=== PATIENT | female | born 1980 | race Caucasian/White ===

== ENCOUNTER 2017-07-11 04:57 | Emergency (ER) | payer OTHER, SELFPAY ==
[2017-07-11 04:59] VITALS: BP 125/86; PULSE 77; RESP 17; TEMP 36.9; O2SAT 97; BMI 30.2
--- NOTE | 2017-07-11 05:14 | EKG12_ITS ---
Test Reason : ABD PAIN Blood Pressure : / mmHG Vent. Rate : 071 BPM Atrial Rate : 071 BPM P-R Int : 122 ms QRS Dur : 094 ms QT Int : 412 ms P-R-T Axes : 043 040 037 degrees QTc Int : 447 ms Normal sinus rhythm Normal ECG Confirmed by CASIE DIAZ, DENZEL ([id number]), story editor MARTA FERRARA ([id number]) on 07/14/2017 3:20:01 PM Referred By: NED Confirmed By:DENZEL JASON MD
--- NOTE | 2017-07-11 05:16 | ED.VISSUMM ---
- ER Visit Summary Date of Service: 07/11/17 Chief Complaint: Abdominal pain History of Present Illness: The patient is a 37 F who woke from sleep around 1 or 130 this morning with pain high in the epigastric area/lower chest. She describes a pressure and fullness sensation. It did radiate to her back. She had nausea but no vomiting. Patient states she did feel short of breath. She is reportedly rolling around on the floor moaning. Pain is now improving. She ate chicken and dressing last evening for dinner. No known history of gallbladder problems, but mother did have her gallbladder removed. Physical Examination: Vital signs are unremarkable. Patient is sitting upright in bed no acute distress. Head and neck examination is normal. Heart is regular rate and rhythm. Lung sounds are clear. Abdomen is soft with tenderness in the epigastric region. There is no guarding or rebound. She has active bowel sounds throughout. Extremity examination reveals no calf tenderness or edema. She has strong distal pulses. Test Results: CBC reveals normal white count with a slight left shift at 84% neutrophils. Chemistry studies are normal. LFTs and lipase are significant for an ALT of 137 and AST of 160. Troponin is less than 0.02. test is negative. EKG is sinus at 71 with no sign of acute ischemia. Emergency Department Course and Treatment: Patient declined anything for pain or nausea while here. On repeat evaluation pain is completely subsided at this time. Due to her symptoms and elevation in her LFTs, right upper quadrant ultrasound will be obtained. This will be signed out to be checked by the oncoming physician. This is been discussed with patient and family at bedside. Treatment Plan: [] Disposition: Pending ultrasound Impression: Epigastric pain, improved This note was generated with Zost[employer] dictation software. It may contain incorrect words, spelling, and punctuation that were not noted in review of the chart prior to signing ED Disposition - Plan for ED Patient: Chief Complaint: Abd Pain Referrals: NOT,DEFINED [NON-STAFF] -
[2017-07-11] MEDS: 0.9% Normal Saline 1,000 ML 150 ML IV (05:30)
[2017-07-11 05:46] LABS: Absolute Neutrophil Count 8.8 X10^3/uL (2.0-7.7); Basophil# 0.02 X10^3/uL; Basophil% 0.2 % (0-1); Eosinophil# 0.09 X10^3/uL; Eosinophils% 0.9 % (0-5); Hematocrit 39.2 % (37-47); Hemoglobin 13.1 g/dl (12.0-15.0); Lymphocyte % 7.6 % (19-41); Mean Corp Hgb Conc 33.4 g/gl (32-36); Mean Corpuscular Hgb 29.3 pg (27.0-32.0); Mean Corpuscular Volume 87.7 fL (81-99); Mean Platelet Vol. 10.6 fl (6.2-12.0); Monocyte# 0.75 X10^3/uL; Monocyte% 7.2 % (0-10); Platelet Count 228 K/mm3 (150-450); RBC Distribution Width CV 12.4 % (11.6-14.6); RBC Distribution Width SD 39.4 fl (35.1-43.9); Red Blood Count 4.47 M/mm3 (4.2-5.4); White Blood Count 10.5 K/mm3 (4.4-11.0)
[2017-07-11 05:52] LABS: POSITIVE COUNT NO; POSITIVE DIFFERENTIAL NO; POSITIVE MORPHOLOGY NO
[2017-07-11 06:07] LABS: AST(SGOT) 160 U/L (15-37); Alanine Aminotransfer ALT/SGPT 137 U/L (13-56); Albumin, Serum 3.8 g/dL (3.2-5.0); Alkaline Phosphatase 67 U/L (45-117); Anion Gap 7 (5-15); BUN 14 mg/dL (7-18); BUN/Creat Ratio 18.1 RATIO (10-20); Bilirubin, Direct 0.27 mg/dL (0.00-0.30); Calcium,Total 8.4 mg/dL (8.5-10.1); Chloride 108 mmol/L (98-107); Creatinine, Serum 0.78 mg/dL (0.55-1.02); EST Glomerular Filtration Rate 88 mL/min (>60); Est Glom Filt Rate - Afr Amer 107 mL/min (>60); Estimated Creatinine Clearance 97.68 ml/min; Globulin 3.5 g/dL (2.2-4.2); Glucose 100 mg/dL (74-106); Lipase 124 U/L (73-393); Potassium 4.1 mmol/L (3.5-5.1); Protein, Total 7.3 g/dL (6.4-8.2); Sodium Level 140 mmol/L (136-145)
[2017-07-11 06:08] LABS: Pregnancy, Serum, hCG Quali. NEGATIVE Negative (0-9 Nonpreg)
--- NOTE | 2017-07-11 06:14 | US_ITS ---
STUDY: ABDOMINAL ULTRASOUND - RIGHT UPPER QUADRANT REASON FOR VISIT: Female, 37 years old. Right upper quadrant pain. Elevated LFTs TECHNIQUE: Ultrasound evaluation of the right upper quadrant was performed with real-time and static altamirano-scale imaging. TECHNICAL QUALITY: Adequate. COMPARISON: None. FINDINGS: Liver: The liver measures 13.6 cm. There is normal echogenicity of the liver. The bile ducts are within normal limits. There is hepatic color flow. The direction of portal flow is hepatopetal. There is no demonstrated mass lesion. Gallbladder: Normal distended gallbladder. The gallbladder wall measures 0.9 mm. There is a negative sonographic Almanza's sign. There is no pericholecystic fluid. There are no gallstones. Common Bile Duct (C.B.D.): The common bile duct measures 3.4 mm. Pancreas: Normal size of the head, body and tail of the pancreas. There is normal echogenicity of the pancreas. There is no demonstrated pancreatic mass or cyst. Right Kidney: Normal size of the right kidney. The right kidney measures 11.9 cm. Normal renal cortex. The right cortex measures 1.1 cm. There is no demonstrated renal mass or cyst. There is no right hydronephrosis. US/Gallbladder IMPRESSION: Normal right upper quadrant ultrasound examination. Electronically Signed: Navjot Santos DO at 8:41 EDT Tel , Service support ,
[2017-07-11 06:32] VITALS: BP 117/78; PULSE 65; RESP 15; O2SAT 98
--- NOTE | 2017-07-11 07:34 | ED.DEP ---
ED Disposition - Plan for ED Patient: Disposition: Home or Assisted Living Chief Complaint: Abd Pain Instructions: ED Epigastric Pain UKO, ED Gallbladder Infec Poss Referrals: Verónica Davis MD [STAFF PHYSICIAN] - As Needed
[2017-07-11 09:46] VITALS: BP 104/67
== END 2017-07-11 10:02 | disposition home or self-care (01) ==
PROVIDERS: Emergency Provider Emergency Medicine
DX: R10.13 Epigastric pain (principal); Z87.891 Personal history of nicotine dependence; L70.9 Acne, unspecified; Z79.899 Other long term (current) drug therapy
CPT/HCPCS: 76705; 80048; 80076; 83690; 84484; 84703; 85025; 93005; 96360; 96361; 99285; J7030; A4216

== ENCOUNTER → 2018-04-15 09:43 | Outpatient (CLI) | payer OTHER, SELFPAY ==
[2018-04-15 12:19] LABS: Absolute Lymphocyte Count 1.86 X10^3/ul (0.83-4.51); Basophil# 0.03 X10^3/uL; Basophil% 0.4 % (0-1); Eosinophil# 0.11 X10^3/uL; Eosinophils% 1.4 % (0-5); Hematocrit 40.3 % (37-47); Hemoglobin 13.3 g/dl (12.0-15.0); Lymphocyte # 1.86 X10^3/ul (4.0); Lymphocyte % 24.4 % (19-41); Mean Corpuscular Hgb 29.1 pg (27.0-32.0); Mean Corpuscular Volume 88.2 fL (81-99); Mean Platelet Vol. 11.7 fl (6.2-12.0); Monocyte# 0.62 X10^3/uL; Monocyte% 8.1 % (0-10); Neutrophil # 4.99 X10^3/uL (2.7-7.7); Neutrophil % 65.6 % (47-70); Platelet Count 244 K/mm3 (150-450); RBC Distribution Width CV 12.5 % (11.6-14.6); RBC Distribution Width SD 39.6 fl (35.1-43.9); Red Blood Count 4.57 M/mm3 (4.2-5.4); White Blood Count 7.6 K/mm3 (4.4-11.0)
[2018-04-15 12:24] LABS: POSITIVE COUNT NO; POSITIVE DIFFERENTIAL NO; POSITIVE MORPHOLOGY NO
[2018-04-15 12:58] LABS: ALB/GLOB Ratio 1.1 RATIO (0.9-2.4); AST(SGOT) 15 U/L (15-37); Alanine Aminotransfer ALT/SGPT 21 U/L (13-56); Alkaline Phosphatase 62 U/L (45-117); Anion Gap 7 (5-15); BUN 12 mg/dL (7-18); BUN/Creat Ratio 16.5 RATIO (10-20); Chloride 105 mmol/L (98-107); Creatinine, Serum 0.73 mg/dL (0.55-1.02); EST Glomerular Filtration Rate 94 mL/min (>60); Est Glom Filt Rate - Afr Amer 114 mL/min (>60); Globulin 3.5 g/dL (2.2-4.2); Glucose 80 mg/dL (74-106); Protein, Total 7.5 g/dL (6.4-8.2); Sodium Level 137 mmol/L (136-145); T4 Free Direct 1.04 ng/dL (0.76-1.46); Thyroid Stim Hormone (TSH) 2.61 uIU/mL (0.358-3.74)
--- OUTSIDE RECORDS SUMMARY | 2018-06-19 23:31 | XMS RPT_ITS ---
:1980 Author Organization [facility] Care Team Providers Name Role Phone Darwin Dodge Attending Unavailable Darwin Dodge Referring Unavailable Primay Care Physicia, No Primary Care Unavailable Bessie Avalos Attending Unavailable Primay Care Physicia, No Primary Care Unavailable PROBLEMS PROBLEMS DATE TYPE CONDITION / CODE ATTENDING STATUS SOURCE 04/15/2018 Unknown R53.83 - Other Darwin Dodge Active [facility] fatigue / Community R53.83(ICD-10) Hospital Repository PROCEDURES PROCEDURES No Procedure Records FoundRESULTS RESULTS CBC W/DIFF, AUTOMATED Collected: 04/15/2018 Status: F Source: [place] 10:03 AM [facility] [place] TYPE CODE TESTS RESULT OUT OF RANGE REFERENCE UNITS LAB L100.1000 4.4-11.0 K/mm3 Normal WBC 7.6 LAB L100.1200 4.2-5.4 M/mm3 Normal RBC 4.57 LAB L100.1300 12.0-15.0 g/dl Normal HGB 13.3 LAB L100.1400 37-47 % Normal HCT 40.3 LAB L100.1500 81-99 fL Normal MCV 88.2 LAB L100.1600 27.0-32.0 pg Normal MCH 29.1 LAB L100.1700 32-36 g/gl Normal MCHC 33.0 LAB L100.1810 11.6-14.6 % Normal RDW CV 12.5 LAB L100.1820 35.1-43.9 fl Normal RDW SD 39.6 LAB L100.1900 150-450 K/mm3 Normal PLT 244 LAB L100.2000 6.2-12.0 fl Normal MPV 11.7 LAB L100.2100 47-70 % Normal NEUT% 65.6 LAB L100.2200 19-41 % Normal LY% 24.4 LAB L100.2300 0-10 % Normal MONO% 8.1 LAB L100.2400 0-5 % Normal EO% 1.4 LAB L100.2500 0-1 % Normal BASO% 0.4 LAB L100.2550 0.0-0.9 % Normal IM GRAN % 0.100 Result Comment: IG% - Immature Granulocytes (promyelocytes, myelocytes and metamyelocytes) > 1% indicates that a LEFT SHIFT is Present. LAB L100.2620 2.0-7.7 X10 3/uL Normal Absolute Neut 5.0 LAB L100.2720 0.83-4.51 X10 3/ul Normal Absolute Lymph 1.86 Performed By: #### L100.0100 #### [facility] [address] [place], [place], [address] COMPREHENSIVE METABOLIC Collected: 04/15/2018 Status: F Source: [facility] 10:03 AM [facility] [place] TYPE CODE TESTS RESULT OUT OF RANGE REFERENCE UNITS LAB L501.0100 74-106 mg/dL Normal GLU 80 Result Comment: Please note revised GLUCOSE reference range effective 2017. LAB L501.1000 7-18 mg/dL Normal BUN 12 LAB L501.1100 0.55-1.02 mg/dL Normal CREAT,SERUM 0.73 Result Comment: The validity of the calculated GFR AND GFRAA in patients over 70 years has not been determined. Clinical correlation is essential. LAB L501.1110 >60 mL/min Normal EST GFR 94 Result Comment: Non- GFR Calc LAB L501.1115 >60 mL/min Normal EST GFR - AA 114 Result Comment: GFR Calc LAB L501.1300 10-20 RATIO Normal BUN/CRE 16.5 LAB L501.1500 6.4-8.2 g/dL T Normal PROT 7.5 LAB L501.1800 3.2-5.0 g/dL Normal ALB 4.0 LAB L501.1950 2.2-4.2 g/dL Normal GLOB 3.5 LAB L501.2000 0.9-2.4 RATIO Normal A/G 1.1 LAB L501.2200 8.5-10.1 mg/dL CA Normal 9.0 LAB L501.4100 15-37 U/L Normal AST 15 LAB L501.4305 45-117 U/L Normal ALK P 62 LAB L501.4405 13-56 U/L Normal ALT 21 LAB L501.4600 0.20-1.00 mg/dL T Normal BILI 0.60 LAB L501.5300 136-145 mmol/L NA Normal 137 LAB L501.5600 3.5-5.1 mmol/L K Normal 4.0 LAB L501.5900 98-107 mmol/L CL Normal 105 LAB L501.6100 21.0-32.0 mmol/L Normal CO2 25.0 LAB L501.6200 5-15 Normal GAP 7 Performed By: #### L500.4050, L501.9520, L506.0400 #### [facility] [address] [place], [address] THYROID STIM HORMONE Collected: 04/15/2018 Status: F Source: [place] ([facility]) 10:03 AM [facility] [place] TYPE CODE TESTS RESULT OUT OF RANGE REFERENCE UNITS LAB L501.9520 0.358-3.74 uIU/mL Normal TSH 2.61 Performed By: #### L500.4050, L501.9520, L506.0400 #### [facility] [address] [place], [address] T4 FREE DIRECT Collected: 04/15/2018 Status: F Source: [place] 10:03 AM [facility] [place] TYPE CODE TESTS RESULT OUT OF RANGE REFERENCE UNITS LAB L506.0400 0.76-1.46 ng/dL Normal T4 FREE 1.04 DIRECT Performed By: #### L500.4050, L501.9520, L506.0400 #### [facility] [address] [facility] [place], [address] 12 LEAD ELECTROCARDIOGRAM Observed: 07/14/2017 Status: F Source: [place] 3:20 PM [facility] [place] [facility] Cardiovascular Services [address] [place] [address] 12 Lead EKG 07/11/17 0514 MR#: [id number] Acct: [id number] Name: PANDA MCKNIGHT Rep #: [id number] : 1980 37 From: Christiano Jason MD Attending Dr: Status: DEP ER Ordering Dr: Bessie Avalos MD Date: 07/11/17 Location: ED Sex: F C Admitted: Test Reason : ABD PAIN Blood Pressure : / mmHG Vent. Rate : 071 BPM Atrial Rate : 071 BPM P-R Int : 122 ms QRS Dur : 094 ms QT Int : 412 ms P-R-T Axes : 043 040 037 degrees QTc Int : 447 ms Normal sinus rhythm Normal ECG Confirmed by CASIE DIAZ, CHRISTIANO ([id number]), editor in chief newspaper MARTA FERRARA ([id number]) on 07/14/2017 3:20:01 PM Referred By: NED Confirmed By:CHRISTIANO JASON MD 07/14/17 1520 Date Christiano Jason MD CC: No Primary Care Physician; Bessie Avalos MD Signed EMERGENCY DEPARTMENT Observed: 07/11/2017 Status: F Source: [place] 7:37 AM [facility] [place] [facility] Medical Records Department [address] [facility] [address] Emergency Department Summary 07/11/17 0516 MR#: [id number] Acct: [id number] Name: PANDA MCKNIGHT Rep #: [id number] : 1980 37 From: Bessie Avalos MD PCP: Care Physician, No Primary Status: REG ER - ER Visit Summary Date of Service: 07/11/17 Chief Complaint: Abdominal pain History of Present Illness: The patient is a 37 F who woke from sleep around 1 or 130 this morning with pain high in the epigastric area/lower chest. She describes a pressure and fullness sensation. It did radiate to her back. She had nausea but no vomiting. Patient states she did feel short of breath. She is reportedly rolling around on the floor moaning. Pain is now improving. She ate chicken and dressing last evening for dinner. No known history of gallbladder problems, but mother did have her gallbladder removed. Physical Examination: Vital signs are unremarkable. Patient is sitting upright in bed no acute distress. Head and neck examination is normal. Heart is regular rate and rhythm. Lung sounds are clear. Abdomen is soft with tenderness in the epigastric region. There is no guarding or rebound. She has active bowel sounds throughout. Extremity examination reveals no calf tenderness or edema. She has strong distal pulses. Test Results: CBC reveals normal white count with a slight left shift at 84% neutrophils. Chemistry studies are normal. LFTs and lipase are significant for an ALT of 137 and AST of 160. Troponin is less than 0.02. test is negative. EKG is sinus at 71 with no sign of acute ischemia. Emergency Department Course and Treatment: Patient declined anything for pain or nausea while here. On repeat evaluation pain is completely subsided at this time. Due to her symptoms and elevation in her LFTs, right upper quadrant ultrasound will be obtained. This will be signed out to be checked by the oncoming physician. This is been discussed with patient and family at bedside. Treatment Plan: [] Disposition: Pending ultrasound Impression: Epigastric pain, improved This note was generated with [employer] dictation software. It may contain incorrect words, spelling, and punctuation that were not noted in review of the chart prior to signing ED Disposition - Plan for ED Patient: Chief Complaint: Abd Pain Referrals: NOT,DEFINED [NON-STAFF] - What to do if you have Problems For any increased pain, shortness of breath, bleeding, nausea or vomiting, chest pain, or any unexpected problems, contact your Primary Care Provider. Call [facility] ([phone]) or report to the closest Emergency Room. Call 911 if necessary. 07/11/17 0737 <Electronically signed by Bessie Avalos MD> Date Bessie Avalos MD Cosigner Signature (If Indicated): Date CC: No Primary Care Physician DISCHARGE INSTRUCTION Observed: 07/11/2017 Status: F Source: [place] 7:36 AM [facility] [place] [facility] Medical Records Department [address] [address] Discharge Instruction 07/11/17 0734 MR#: [id number] Acct: [id number] Name: PANDA MCKNIGHT Rep #: [id number] : 1980 37 From: Bessie Avalos MD PCP: Care Physician, No Primary Status: REG ER ED Disposition - Plan for ED Patient: Disposition: Home or Assisted Living Chief Complaint: Abd Pain Instructions: ED Epigastric Pain UKO, ED Gallbladder Infec Poss Referrals: Verónica Davis MD [STAFF PHYSICIAN] - As Needed What to do if you have Problems For any increased pain, shortness of breath, bleeding, nausea or vomiting, chest pain, or any unexpected problems, contact your Primary Care Provider. Call [facility] ([phone]) or report to the closest Emergency Room. Call 911 if necessary. 07/11/17 0736 <Electronically signed by Bessie Avalos MD> Date Bessie Avalos MD Cosigner Signature (If Indicated): Date CC: No Primary Care Physician GALLBLADDER Observed: 07/11/2017 Status: F Source: [place] 6:15 AM [facility] [place] [facility] Imaging Services [address] [place] [address] Gallbladder MR#: [id number] Acct: [id number] Name: JUAN LUISPANDA PETTY Rep #: [id number] : 1980 F 37 From: Navjot Santos DO PCP: Care Physician, No Primary Status: REG ER Study: Gallbladder Date of Exam: 07/11/17 Exam# [id number] Ordering Dr: Bessie Avalos MD STUDY: ABDOMINAL ULTRASOUND - RIGHT UPPER QUADRANT REASON FOR VISIT: Female, 37 years old. Right upper quadrant pain. Elevated LFTs TECHNIQUE: Ultrasound evaluation of the right upper quadrant was performed with real-time and static altamirano-scale imaging. TECHNICAL QUALITY: Adequate. COMPARISON: None. FINDINGS: Liver: The liver measures 13.6 cm. There is normal echogenicity of the liver. The bile ducts are within normal limits. There is hepatic color flow. The direction of portal flow is hepatopetal. There is no demonstrated mass lesion. Gallbladder: Normal distended gallbladder. The gallbladder wall measures 0.9 mm. There is a negative sonographic Almanza's sign. There is no pericholecystic fluid. There are no gallstones. Common Bile Duct (C.B.D.): The common bile duct measures 3.4 mm. Pancreas: Normal size of the head, body and tail of the pancreas. There is normal echogenicity of the pancreas. There is no demonstrated pancreatic mass or cyst. Right Kidney: Normal size of the right kidney. The right kidney measures 11.9 cm. Normal renal cortex. The right cortex measures 1.1 cm. There is no demonstrated renal mass or cyst. There is no right hydronephrosis. US/Gallbladder IMPRESSION: Normal right upper quadrant ultrasound examination. Electronically Signed: Navjot Santos DO at 8:41 EDT Tel , Service support , CC: No Primary Care Physician; Bessie Avalos MD Remote Operations Producer: Signed CBC W/DIFF, AUTOMATED Collected: 07/11/2017 Status: F Source: [place] 5:25 AM [facility] [place] TYPE CODE TESTS RESULT OUT OF RANGE REFERENCE UNITS LAB L100.1000 4.4-11.0 K/mm3 Normal WBC 10.5 LAB L100.1200 4.2-5.4 M/mm3 Normal RBC 4.47 LAB L100.1300 12.0-15.0 g/dl Normal HGB 13.1 LAB L100.1400 37-47 % Normal HCT 39.2 LAB L100.1500 81-99 fL Normal MCV 87.7 LAB L100.1600 27.0-32.0 pg Normal MCH 29.3 LAB L100.1700 32-36 g/gl Normal MCHC 33.4 LAB L100.1810 11.6-14.6 % Normal RDW CV 12.4 LAB L100.1820 35.1-43.9 fl Normal RDW SD 39.4 LAB L100.1900 150-450 K/mm3 Normal PLT 228 LAB L100.2000 6.2-12.0 fl Normal MPV 10.6 LAB L100.2100 47-70 % High NEUT% 84.0 LAB L100.2200 19-41 % Low LY% 7.6 LAB L100.2300 0-10 % Normal MONO% 7.2 LAB L100.2400 0-5 % Normal EO% 0.9 LAB L100.2500 0-1 % Normal BASO% 0.2 LAB L100.2550 0.0-0.9 % Normal IM GRAN % 0.100 Result Comment: IG% - Immature Granulocytes (promyelocytes, myelocytes and metamyelocytes) > 1% indicates that a LEFT SHIFT is Present. LAB L100.2620 2.0-7.7 X10 3/uL High Absolute Neut 8.8 LAB L100.2720 0.83-4.51 X10 3/ul Low Absolute Lymph 0.80 Performed By: #### L100.0100 #### [facility] [address] [place], [address] BASIC METABOLIC Collected: 07/11/2017 Status: F Source: [place] PROFILE ([facility]) 5:25 AM [facility] [place] Order Comment: 'TROP' Serial specimen #1, #2, #3, or #4: 1 TYPE CODE TESTS RESULT OUT OF RANGE REFERENCE UNITS LAB L501.0100 74-106 mg/dL Normal GLU 100 Result Comment: Fasting Glucose result from 100 to 125 mg/dL suggests IMPAIRED HOMEOSTASIS per A.D.A. criteria. Please note revised GLUCOSE reference range effective 2017. LAB L501.1000 7-18 mg/dL Normal BUN 14 LAB L501.1100 0.55-1.02 mg/dL Normal CREAT,SERUM 0.78 Result Comment: The validity of the calculated GFR AND GFRAA in patients over 70 years has not been determined. Clinical correlation is essential. LAB L501.1110 >60 mL/min Normal EST GFR 88 Result Comment: Non- GFR Calc LAB L501.1115 >60 mL/min Normal EST GFR - AA 107 Result Comment: GFR Calc LAB L501.1255 ml/min Normal Estimated CRCL 97.68 LAB L501.1300 10-20 RATIO Normal BUN/CRE 18.1 LAB L501.2200 8.5-10 mg/dL Low .1 CA 8.4 LAB L501.5300 136-14 mmol/L Normal 5 NA 140 LAB L501.5600 3.5-5. mmol/L Normal 1 K 4.1 LAB L501.5900 98-107 mmol/L High CL 108 LAB L501.6100 21.0-3 mmol/L Normal 2.0 CO2 25.0 LAB L501.6200 5-15 Normal GAP 7 Performed By: #### L500.2500, L500.3400, L501.2450, L501.4010 #### [facility] [address] [place], [place], [address] LIVER PROFILE Collected: 07/11/2017 Status: F Source: [place] 5:25 AM [facility] [place] Order Comment: 'TROP' Serial specimen #1, #2, #3, or #4: 1 TYPE CODE TESTS RESULT OUT OF RANGE REFERENCE UNITS LAB L501.1500 6.4-8.2 g/dL Normal T PROT 7.3 LAB L501.1800 3.2-5.0 g/dL Normal ALB 3.8 LAB L501.1950 2.2-4.2 g/dL Normal GLOB 3.5 LAB L501.4100 15-37 U/L High AST 160 LAB L501.4305 45-117 U/L Normal ALK P 67 LAB L501.4405 13-56 U/L High ALT 137 LAB L501.4600 0.20-1.00 mg/dL Normal T BILI 0.60 LAB L501.4700 0.00-0.30 mg/dL Normal D BILI 0.27 Performed By: #### L500.2500, L500.3400, L501.2450, L501.4010 #### [facility] [address] [place], [place], [id number] LIPASE Collected: 07/11/2017 Status: F Source: [place] 5:25 AM [facility] [place] Order Comment: 'TROP' Serial specimen #1, #2, #3, or #4: 1 TYPE CODE TESTS RESULT OUT OF RANGE REFERENCE UNITS LAB L501.2450 73-393 U/L Normal LIPASE 124 Performed By: #### L500.2500, L500.3400, L501.2450, L501.4010 #### [facility] [address] [place], [address] TROPONIN-I Collected: 07/11/2017 Status: F Source: [place] 5:25 AM [facility] [place] Order Comment: 'TROP' Serial specimen #1, #2, #3, or #4: 1 TYPE CODE TESTS RESULT OUT OF RANGE REFERENCE UNITS LAB L501.4010 <0.06 ng/mL Normal < 0.02 TROPONIN-I Result Comment: TROPONIN-I EXPECTED VALUES <0.05 NEGATIVE 0.06 - 0.59 AT RISK OF FL > OR = 0.60 SUGGEST FL Performed By: #### L500.2500, L500.3400, L501.2450, L501.4010 #### [facility] [address] [place], [place], [id number] ,SERUM,HCG QUALI. Collected: Status: F Source: [place] 07/11/2017 5:25 AM [facility] [place] TYPE CODE TESTS RESULT OUT OF REFERENCE UNITS RANGE LAB L700.7000 0-9 Nonpreg Negative Normal HCGSQUAL NEGATIVE LAB L700.6700 =>Qualitative mIU/mL Normal HCG Qual < 1 triggr Performed By: #### L700.6800 #### [facility] [address] [place], [place], [address] ALLERGIES ALLERGIES DATE TYPE / CODE NAME / CODE REACTION SEVERITY SOURCE 07/11/2017 Drug No Known Unknown [place] [facility] Allergy/4160 Allergies/F00 Hospital 6[address]39(SNOMED 2007261(RXNOR Repository CT) M) ENCOUNTERS ENCOUNTERS ADMIT/DISCHARGE ACCOUNT ADMITTING ENCOUNTER LOCATION SOURCE NUMBER CLASS 04/15/2018 [id number] [place] [facility] ing:MTLAB Repository 07/11/2017/ [id number] Emergency [place] [facility] ing:ED Repository PAYERS PAYERS ENCOUNTER GUARANTOR PAYER SUBSCRIBER SOURCE 04/15/2018 MICK [place] Primary Insurance:UMR MICK Kap[place] [id number] BETO [id number] HERSHBERGERDOB: [facility] [place]: [id number] [id number] Repository [address]Hyk: ([phone]) Date:[id number] [phone] () [address] [place] [phone]: 04/15/2018 Secondary NOT GIVENUNK [place] Insurance:SELF PAY [facility] Number: Effective Repository Date:2018-04-15 07/11/2017 Mick Primary Insurance:UMR Mick Rodgers [id number] BETO [address]Ceygro HershbergerDOB: [facility] [place]: [id number] [id number] Repository [address]Gqe: ([phone]) Date:[id number] [phone] () [address] [address]KH: 07/11/2017 Secondary NOT GIVENUNK [place] Insurance:SELF PAY [facility] Number: Effective Repository Date:2017-07-11
== END ==
PROVIDERS: Referring Provider Dermatology; Visit Provider Dermatology
DX: R53.83 Other fatigue (principal)
CPT/HCPCS: 36415; 80053; 84439; 84443; 85025